=== PATIENT | female | born 1980 | race Caucasian/White ===

== ENCOUNTER 2019-09-15 11:09 | Emergency (ER) | payer BC, MEDICAID, SELFPAY ==
[2019-09-15 11:20] VITALS: BP 112/74; PULSE 73; RESP 19; TEMP 37.3; O2SAT 100
--- NOTE | 2019-09-15 11:27 | ED.GENADULT ---
HPI - General Adult General Chief complaint: Upper Respiratory Infection Stated complaint: sinus issues Time Seen by Provider: 09/15/19 11:28 Source: patient and RN notes reviewed Mode of arrival: ambulatory Limitations: no limitations History of Present Illness HPI narrative: This is a 38 years old female presented office for evaluation of possible sinus infection. Symptoms began last week with stuffy nose and head congestion and worse over the weekend with severe headache, facial pain, and left ear pain. She took [id number] Tylenol with no relief. She does not smoke. She takes immunomodulation for her Crohn's disease. Related Data Home Medications Medication Instructions Recorded Confirmed ustekinumab [Stelara] 90 mg SUBCUT DIRECTED 09/15/19 09/15/19 Allergies Allergy/AdvReac Type Severity Reaction Status Date / Time amoxicillin Allergy Mild Other Verified 09/15/19 11:24 Review of Systems Review of Systems: Narrative: CONSTITUTIONAL: Denies fever. Reports feeling malaise ENT:Reports head congestion, left ear pain with headache CARDIOVASCULAR: Denies chest pain, palpitation, edema. RESPIRATORY: Denies dyspnea, wheezing, cough GASTROINTESTINAL: Denies abdominal pain, nausea, vomiting. Reports chronic diarrhea due to Crohn's GENITOURINARY: Denies urinary symptoms or discharge SKIN: Denies rash MUSCULOSKELETAL: Denies acute back pain NEUROLOGIC: Denies lightheaded PMFSH Past Medical History Medical History History of Crohn's disease Surgical History Surgical History Hx of spinal surgery Social History Social History Smoking status: Never smoker Alcohol intake: current Substance use type: marijuana Gender identity (if verbalized by the patient): Female Comments At time of signature, I agree with nursing past medical, surgical, social and family history. There is no relevant family history pertinent to the presenting complaint. Exam Narrative: Exam Narrative: GENERAL: This is a well-nourished, well-developed patient, in no apparent distress. EYES: Sclera clear/white. Vision is grossly intact. EARS: External ears normal, auditory canals clear and without drainage, TMs appears dull without light reflex, bulging without erythema. Hearing grossly intact. NOSE: External nose normal with no obvious nasal discharge, nares without redness, no rhinorrhea. Tenderness to palpation THROAT: Mucous membranes moist, posterior pharynx clear. NECK: Neck supple, non-tender without lymphadenopathy, masses or thyromegaly. CARDIOVASCULAR: Regular rate and rhythm without murmurs, gallops, or rubs. RESPIRATORY: Clear to auscultation. Breath sounds equal bilaterally. No wheezes, rales, or rhonchi. GASTROINTESTINAL: Abdomen soft, non-tender, nondistended. Bowel sounds are active. No guarding. SKIN: warm, intact with no suspicious lesions or rash, good texture and turgor. NEURO: awake, alert, and oriented to person, place and time. There were no obvious focal neurologic abnormalities. Steady gait Belinda Coma Scale Eye Opening: Spontaneous 4 [place] Coma Scale Motor: Obeys Commands 6 Belinda Coma Scale Verbal: Oriented 5 Course Vital Signs Vital signs: Vital Signs Temperature 99.2 F 09/15/19 11:20 Pulse Rate 73 09/15/19 11:20 Respiratory Rate 19 09/15/19 11:20 Blood Pressure 112/74 09/15/19 11:20 Pulse Oximetry 100 09/15/19 11:20 Temperature 99.2 F 09/15/19 11:20 Pulse Rate 73 09/15/19 11:20 Respiratory Rate 19 09/15/19 11:20 Blood Pressure 112/74 09/15/19 11:20 Pulse Oximetry 100 09/15/19 11:20 Medical Decision Making MDM Narrative Medical decision making narrative: Discharge instructions reviewed with patient, as well as provided in writing per nursing staff. The instructions also include specif
== END 2019-09-15 11:41 | disposition home or self-care (01) ==
PROVIDERS: Emergency Provider Nurse Practitioner; PCP Family Medicine
DX: J00 Acute nasopharyngitis [common cold] (principal); J01.90 Acute sinusitis, unspecified
CPT/HCPCS: 99213; G0463

== ENCOUNTER 2020-02-02 10:12 | Emergency (ER) | payer BC, SELFPAY ==
[2020-02-02 10:25] VITALS: BP 111/76; PULSE 75; RESP 20; TEMP 36.6; O2SAT 100
--- NOTE | 2020-02-02 11:10 | ED.GENADULT ---
HPI - General Adult General Chief complaint: Urogenital-Female Stated complaint: POS UTI/KUNZ Time Seen by Provider: 02/02/20 11:03 Source: patient and RN notes reviewed Mode of arrival: ambulatory Limitations: no limitations History of Present Illness HPI narrative: 39-year-old female presents with urinary complaints for 1 day. Dysuria consist of burning, frequency, and urgency.? No treatment.? Denies fever or chills. No significant pelvic pain. No vaginal discharge.? No concerns for STDs. Exacerbating factors urinating.? Denies hematuria or vaginal bleeding. Denies being , LMP currently started on 01/29/20.? No flank pain. Denies nausea, vomiting, and abdominal pain.? Tolerating liquids well.? Remains active. The patient reports she have not been diagnosed with COVID-19. The patient reports she is not waiting for the results of a COVID-19 lab test. The patient reports she do not have fever, chills, weakness, or fatigue, myalgia. The patient reports she do not have a new or worsening cough or shortness of breath. Denies chest pain. The patient reports she do not have any rhinorrhea, congestion, or sore throat, and diarrhea. Denies recent traveling. Denies concerns for COVID-19 or exposures been home with limited outdoor exposure except for essential household needs, work, and return home. At this time, patient is not suspected of having COVID-19. Some parts of this dictation were generated by voice recognition software and may contain typographical and/or grammatical inaccuracies. Related Data Home Medications Medication Instructions Recorded Confirmed ustekinumab [Stelara] 90 mg SUBCUT DIRECTED 09/15/19 02/02/20 Allergies Allergy/AdvReac Type Severity Reaction Status Date / Time amoxicillin Allergy Mild Other Verified 09/15/19 11:24 Review of Systems Review of Systems: Narrative: CONSTITUTIONAL: Denies fever, chills, sweats. EYES: Denies visual changes, redness, discharge. ENT: Denies rhinorrhea, congestion, sore throat, otalgia. CARDIOVASCULAR: Denies chest pain, palpitations, edema. RESPIRATORY: Denies dyspnea, wheezing, cough. GASTROINTESTINAL: Denies abdominal pain, nausea, vomiting, diarrhea. GENITOURINARY: Complains of dysuria (burning, frequency, and urgency). Denies hematuria, abnormal discharge. SKIN: Denies rash or itching. MUSCULOSKELETAL: Denies acute back pain, joint pain, or myalgia. NEUROLOGIC: Denies numbness or focal weakness. PSYCHIATRIC: Denies anxiety or depression. All systems reviewed & are unremarkable except as noted in HPI and below. [facility] Past Medical History Medical History (Updated 02/02/20 @ 12:52 by CARLITO Haynes) History of Crohn's disease Surgical History Surgical History (Updated 02/02/20 @ 12:52 by CARLITO Haynes) History of exploratory laparotomy Hx of spinal surgery Family History Family History (Updated 02/02/20 @ 12:52 by CARLITO Haynes) Father Alive and well Mother Hypertension Social History Social History (Updated 02/02/20 @ 12:53 by CARLITO Haynes) Smoking packs per day: 0.5 Smoking cigarettes per day: 10.0 Years smoked: 20 Smoking pack-years: 10.00 Smoking status: Current every day smoker Second hand tobacco smoke exposure: No Alcohol intake: current Substance use: current Substance use type: marijuana Living arrangements: with family Occupation/Education: occupation Gender identity (if verbalized by the patient): Female Comments At time of signature, agree with nurse past medical, surgical, social, and family history.? There is no relevant family history pertinent to the presenting complaint. Exam Narrative: Exam Narrative: GENERAL: This is a well-nourished, well-developed patient, in no apparent distress.? Talks in full sentences and ambulates with steady gait without dyspnea. HEAD: normocephalic, atraumatic. EYES: PERRL. Sclera clear/white. Vision is grossly intact. [place]
== END 2020-02-02 11:19 | disposition home or self-care (01) ==
PROVIDERS: Emergency Provider Nurse Practitioner Family; PCP Family Medicine
DX: R30.0 Dysuria (principal); F17.210 Nicotine dependence, cigarettes, uncomplicated; K50.90 Crohn's disease, unspecified, without complications
CPT/HCPCS: 81003; 87077; 87086; 87088; 99213; G0463

== ENCOUNTER 2020-11-30 08:02 | Emergency (ER) | payer BC, SELFPAY ==
--- NOTE | ~2020-11-30 | XR_ITS ---
EXAMINATION: XR chest 2V EXAM DATE: 11/30/2020 08:56 INDICATION: Cough, Congestion x 1 wk, afebrile; hx of asthma as child. TECHNIQUE: Frontal and lateral projections of the chest obtained and reviewed. Comparison is made to prior examination from 06/04/2018.. FINDINGS: The lungs are clear. There are no pleural effusions. The cardiomediastinal silhouette is within normal limits. There is no pneumothorax suspected. The bones and soft tissues are unremarkab le. IMPRESSION: Normal chest x-ray exam. Reviewed, dictated and finalized at location A. IMPRESSION: Normal chest x-ray exam.
[2020-11-30 08:19] VITALS: BP 130/84; PULSE 68; RESP 16; TEMP 36.2; O2SAT 100
--- NOTE | 2020-11-30 08:36 | ED.GENADULT ---
HPI - General Adult General Chief complaint: Upper Respiratory Infection Stated complaint: upper respiratory infection Time Seen by Provider: 11/30/20 08:36 Source: patient and RN notes reviewed Mode of arrival: ambulatory Limitations: no limitations History of Present Illness HPI narrative: 39-year-old female presents with complains of dry cough for the past 7 days. Lacey reports increasing symptoms with congestion and facial pressure over the past 24 hours. Mucinex and DayQuil without relief. Constant dry cough with chest congestion. Rhinorrhea and nasal congestion. Denies sore throat. No high fevers, drooling, neck or throat swelling. No chest pain, wheezing, or shortness of breath. Exacerbation factors consist of smoke exposure. Denies nausea, vomiting, and abdominal pain. Tolerating liquids well. Remains active. The patient reports she have not been diagnosed with COVID-19. The patient reports she received 2 Moderna COVID-19 vaccines, last on October 05, 2020. The patient reports she is not waiting for the results of a COVID-19 lab test. The patient reports she do not have chills, weakness, or fatigue. The patient reports she do not have a new or worsening cough or shortness of breath. Denies chest pain. The patient reports she do not have any rhinorrhea, congestion, sore throat, loss of taste or smell, nausea, vomiting, abdominal pain, and diarrhea. Tolerating po intake well. Denies recent traveling. Denies concerns for COVID-19 or exposures been home with limited outdoor exposure except for essential household needs, work, and return home. At this time, patient is not suspected of having COVID-19. Some parts of this dictation were generated by voice recognition software and may contain typographical and/or grammatical inaccuracies. Related Data Home Medications Medication Instructions Recorded Confirmed ustekinumab [Stelara] 90 mg SUBCUT DIRECTED 09/15/19 02/02/20 Allergies Allergy/AdvReac Type Severity Reaction Status Date / Time amoxicillin Allergy Mild Other Verified 09/15/19 11:24 Review of Systems Review of Systems: Narrative: CONSTITUTIONAL: Denies fever, chills, sweats. EYES: Denies visual changes, redness, discharge. ENT: Complains of rhinorrhea, congestion, facial pressure. Denies sore throat, otalgia. CARDIOVASCULAR: Denies chest pain, palpitations, edema. RESPIRATORY: Denies dyspnea, wheezing. Complains of dry cough with chest congestion. GASTROINTESTINAL: Denies abdominal pain, nausea, vomiting, diarrhea. SKIN: Denies rash or itching. MUSCULOSKELETAL: Denies acute back pain, joint pain, or myalgia. NEUROLOGIC: Denies numbness or focal weakness. PSYCHIATRIC: Denies anxiety or depression. All systems reviewed & are unremarkable except as noted in HPI and below. [facility] Past Medical History Medical History (Updated 11/30/20 @ 09:30 by CARLITO Haynes) Arthritis Cyst History of Crohn's disease Vaginal delivery X2 Surgical History Surgical History (Updated 11/30/20 @ 09:30 by CARLITO Haynes) History of exploratory laparotomy History of removal of cyst History of tubal ligation History of tympanostomy Hx of spinal surgery Family History Family History (Updated 11/30/20 @ 09:01 by CARLITO Haynes) Father Diabetes mellitus Mother Hypertension Social History Social History (Updated 11/30/20 @ 09:02 by CARLITO Haynes) Smoking packs per day: 0.5 Smoking cigarettes per day: 10.0 Years smoked: 20 Smoking pack-years: 10.00 Smoking status: Current every day smoker Second hand tobacco smoke exposure: No Alcohol intake: current Substance use: current Substance use type: marijuana Living arrangements: with family Occupation/Education: unemployed Gender identity (if verbalized by the patient): Female Sexual Orientation (if Verbalized by the Patient): Straight or Heterosexual Comments At time of signature, agree
== END 2020-11-30 09:20 | disposition home or self-care (01) ==
PROVIDERS: Emergency Provider Nurse Practitioner Family
DX: B34.9 Viral infection, unspecified (principal); R06.2 Wheezing; F17.200 Nicotine dependence, unspecified, uncomplicated; M19.90 Unspecified osteoarthritis, unspecified site
CPT/HCPCS: 71046; 99213; G0463

== ENCOUNTER 2021-03-08 11:23 | Emergency (ER) | payer OTHER, SELFPAY ==
[2021-03-08 11:27] VITALS: BP 121/79; PULSE 66; RESP 12; TEMP 36.2; O2SAT 100
--- NOTE | 2021-03-08 11:47 | ED.URI ---
HPI - URI/Sore Throat General Chief Complaint: Upper Respiratory Infection Stated Complaint: SINUS CONGESTION Source: patient Mode of arrival: ambulatory Limitations: no limitations History of Present Illness HPI Narrative: Patient is a 40 year old female who presents reporting sinus pressure, headache, sore throat, cough and sinus drainage x 2 days. Patient reports vaccinated for Covid x 2. Patient reports no known exposure to Covid. She denies fever or chest pain. She reports a medical history which includes Crohn's which is followed by GI. She denies taking any [id number] medications prior to arrival. MD elicited complaint: cough, sore throat, nasal congestion and sinus pain Related Data Home Medications Medication Instructions Recorded Confirmed ustekinumab [Stelara] 90 mg SUBCUT DIRECTED 09/15/19 02/02/20 Allergies Allergy/AdvReac Type Severity Reaction Status Date / Time amoxicillin Allergy Mild Other Verified 09/15/19 11:24 Review of Systems Review of Systems: CONSTITUTIONAL: Denies fever, chills, or sweats. EYES: Denies visual changes, redness, or discharge. ENT: Denies rhinorrhea, reports congestion, sinus pressure and sore throat. CARDIOVASCULAR: Denies chest pain, palpitations, or edema. RESPIRATORY: Denies cough or dyspnea. GASTROINTESTINAL: Denies abdominal pain, nausea, vomiting, or diarrhea. GENITOURINARY: Denies dysuria or hematuria. SKIN: Denies rash or itching. MUSCULOSKELETAL: Denies back pain, joint pain, or myalgia. NEUROLOGIC: Reports headache, denies numbness, dizziness, or weakness. PSYCHIATRIC: Denies anxiety or depression. [facility] Past Medical History Medical History Arthritis Cyst History of Crohn's disease Vaginal delivery X2 Surgical History Surgical History History of exploratory laparotomy History of removal of cyst History of tubal ligation History of tympanostomy Hx of spinal surgery Family History Family History Father Diabetes mellitus Mother Hypertension Social History Social History Smoking packs per day: 0.5 Smoking cigarettes per day: 10.0 Years smoked: 20 Smoking pack-years: 10.00 Smoking status: Current every day smoker Second hand tobacco smoke exposure: No Alcohol intake: current Substance use: current Substance use type: marijuana Gender identity (if verbalized by the patient): Female Comments At the time of signature, I have reviewed and agree with nursing past medical, surgical, social, and family history unless otherwise noted. Please see nursing chart for further information. There is no relevant family history pertinent to the presenting complaint. Exam Narrative: GENERAL: Well-appearing, well-nourished, and in no acute distress. HEAD: Normocephalic, atraumatic. EYES: EOMI. No redness or drainage. Conjunctiva are normal. ENT: Mucous membranes pink and moist. Nares clear. No rhinorrhea. Throat mild erythema. Uvula midline. Maxillary sinus tenderness with palpation NECK: AROM. Supple. No lymphadenopathy. CHEST: No respiratory distress. HEART: Regular rate and rhythm. EXTREMITIES: Normal range of motion. No edema. SKIN: Warm, dry, no rash. NEURO: No focal deficits. Alert and oriented x3. Gait steady. PSYCH: Normal affect. No signs of depression or anxiety. Course Vital Signs Vital signs: Vital Signs Temperature 36.2 C L 03/08/21 11:27 Pulse Rate 66 03/08/21 11:27 Respiratory Rate 12 03/08/21 11:27 Blood Pressure 121/79 03/08/21 11:27 Pulse Oximetry 100 03/08/21 11:27 Temperature 36.2 C L 03/08/21 11:27 Pulse Rate 66 03/08/21 11:27 Respiratory Rate 12 03/08/21 11:27 Blood Pressure 121/79 03/08/21 11:27 Pulse Oximetry 100 03/08/21 11:27 Reviewed
== END 2021-03-08 11:58 | disposition home or self-care (01) ==
PROVIDERS: Emergency Provider Nurse Practitioner
DX: U07.1 COVID-19 (principal); M19.90 Unspecified osteoarthritis, unspecified site; K50.90 Crohn's disease, unspecified, without complications; F17.210 Nicotine dependence, cigarettes, uncomplicated
CPT/HCPCS: 87426; 99213; C9803; G0463

== ENCOUNTER 2021-03-10 12:53 | Outpatient (RCR) | payer OTHER, SELFPAY ==
[2021-03-10] MEDS: ACETAMINOPHEN 325 MG TABLET 650 MG PO (13:07)
[2021-03-10] MEDS: FAMOTIDINE 20 MG TABLET PO (13:08)
[2021-03-10] MEDS: diphenhydrAMINE HCl CAP 25 MG CAPSULE PO (13:08)
[2021-03-10 13:20] VITALS: BP 100/65; PULSE 64; RESP 16; TEMP 36.3; O2SAT 100
--- NOTE | 2021-03-10 13:31 | PC.NURSE ---
Patient states she received both doses of the Pfizer COVID vaccine. Her first vaccine was 09/14/2020 and second was 10/15/2020.
[2021-03-10 14:43] VITALS: BP 103/65; PULSE 69; RESP 16; TEMP 36.2; O2SAT 98
--- NOTE | 2021-03-11 10:34 | PC.NURSE ---
Called patient to follow-up on yesterday's antibody infusion. Patient states she is feeling much better and denies any side effects at this time.
== END 2021-03-10 16:00 | disposition home or self-care (01) ==
LOC: AMCINF 12:53
PROVIDERS: Visit Provider Internal Medicine Hematology & Oncology
DX: Z23 Encounter for immunization (principal); U07.1 COVID-19
CPT/HCPCS: A9270; J7050; M0243

== ENCOUNTER 2021-07-23 11:26 | Outpatient (CLI) | payer OTHER, SELFPAY ==
--- NOTE | ~2021-07-23 | MM_ITS ---
EXAMINATION: MM screening [facility] BI w [facility] HISTORY: Screening TECHNIQUE: Craniocaudal and mediolateral oblique 3-D tomosynthesis images were obtained and synthetic 2-D images were generated. CAD analysis was submitted and interpreted. COMPARISON: No prior mammogram is available for comparison at this institution. BREAST PARENCHYMAL COMPOSITION: There are scattered areas of fibroglandular density. FINDINGS: There is no evidence of suspicious mass, calcification, or architectural distortion to sugg est malignancy in either breast. There has been no suspicious interval change. IMPRESSION: 1. No mammographic evidence of malignancy. 2. Recommend routine screening mammography in one year. BI-RADS Category 1: Negative Reviewed, dictated and finalized at location A. INSPECTOR
== END 2021-07-23 11:27 | disposition home or self-care (01) ==
PROVIDERS: PCP Family Medicine; Visit Provider Nurse Practitioner Family
DX: Z12.31 Encounter for screening mammogram for malignant neoplasm of breast (principal)
CPT/HCPCS: 77063; 77067

== ENCOUNTER 2021-11-06 10:02 | Emergency (ER) | payer OTHER, SELFPAY ==
[2021-11-06 10:07] VITALS: BP 107/83; PULSE 73; RESP 16; TEMP 36.5; O2SAT 99
--- NOTE | 2021-11-06 10:21 | ED.GENADULT ---
HPI - General Adult General Chief complaint: Upper Respiratory Infection Stated complaint: CONGESTION Source: patient Mode of arrival: ambulatory Limitations: no limitations History of Present Illness HPI narrative: Patient presents for evaluation of sinus symptoms for the past week. She reports sinus congestion, thick mucopurulent discharge from bilateral nares, scratchy throat, hot flashes and chills. No objective fever, significant cough, shortness of breath, nausea, vomiting. She has diarrhea but states that this is chronic related to her Crohn's. Her son has similar symptoms. She has taken some OTC tylenol sinus medication without considerable improvement in her symptoms. She smokes marijuana regularly and also smokes cigarettes. No additional complaints or concerns. Related Data Home Medications Medication Instructions Recorded Confirmed ustekinumab [Stelara] 90 mg SUBCUT DIRECTED 09/15/19 11/06/21 multivitamin 1 tablet PO DAILY 07/14/21 11/06/21 Allergies Allergy/AdvReac Type Severity Reaction Status Date / Time No Known Allergies Allergy Verified 11/06/21 10:20 Review of Systems Review of Systems: CONSTITUTIONAL: Flashes and chills. Denies objective fever. EYES: Denies visual changes, redness, or discharge. ENT: Reports sinus congestion, thick mucopurulent discharge from bilateral naris, bilateral ear discomfort and scratchy throat CARDIOVASCULAR: Denies chest pain, palpitations, or edema. RESPIRATORY: Denies cough or dyspnea. GASTROINTESTINAL: Reports chronic diarrhea, unchanged. Denies abdominal pain, nausea, or vomiting GENITOURINARY: Denies dysuria or hematuria. SKIN: Denies rash or itching. MUSCULOSKELETAL: Denies back pain, joint pain, or myalgia. NEUROLOGIC: Denies headache, numbness, dizziness, or weakness. PSYCHIATRIC: Denies anxiety or depression. [facility]LY [facility] Past Medical History Medical History Anxiety Arthritis Asthma childhood Crohn disease Cyst History of Crohn's disease Nicotine use Psoriasis Psoriatic arthritis Vaginal delivery X2 Surgical History Surgical History History of exploratory laparotomy (~1997) History of removal of cyst History of tubal ligation (~2006) History of tympanostomy Hx of spinal surgery (~2013) Family History Family History Father Diabetes mellitus Mother Hypertension Social History Social History Social History: Pt lives with 2 sons Smoking packs per day: 0.25 Smoking cigarettes per day: 5.0 Years smoked: 20 Smoking pack-years: 5.00 Tobacco type: cigarettes Second hand tobacco smoke exposure: No Additional smoking assessment comments: medical marijuana usage daily Alcohol intake: current Substance use: current Substance use type: marijuana Gender identity (if verbalized by the patient): Female Sexual Orientation (if Verbalized by the Patient): Straight or Heterosexual Spiritual care concerns: No Agree to blood products: Yes Exam Narrative: GENERAL: Well-appearing, well-nourished, and in no acute distress. HEAD: Normocephalic, atraumatic. EYES: PERRLA and EOMI. ENT: Nares clear, no rhinorrhea or epistaxis. Mucous membranes moist. Oropharynx without tonsillar hypertrophy exudate or other lesions. Bilateral TM scarring. NECK: Supple. No adenopathy or masses. No carotid bruits or JVD CHEST: Clear to auscultation. No respiratory distress. No wheezes rales or rhonchi HEART: Regular rate and rhythm. No murmur heard. Normal peripheral pulses. ABDOMEN: Soft, nontender, nondistended, normal active bowel sounds. EXTREMITIES: Normal range of motion. No edema. SKIN: Warm, dry, no rash. NEURO: No focal deficits. Alert and oriented x3. PSYCH: Normal mood and affect. Cou
== END 2021-11-06 10:23 | disposition home or self-care (01) ==
PROVIDERS: Emergency Provider Nurse Practitioner; PCP Nurse Practitioner Family
DX: J01.90 Acute sinusitis, unspecified (principal); F17.210 Nicotine dependence, cigarettes, uncomplicated; F12.90 Cannabis use, unspecified, uncomplicated; M19.90 Unspecified osteoarthritis, unspecified site; K50.90 Crohn's disease, unspecified, without complications; L40.9 Psoriasis, unspecified; L40.50 Arthropathic psoriasis, unspecified
CPT/HCPCS: 99213; G0463

== ENCOUNTER 2022-02-28 09:24 | Emergency (ER) | payer OTHER, SELFPAY ==
[2022-02-28 09:32] VITALS: BP 117/79; PULSE 76; RESP 20; TEMP 35.9; O2SAT 99
--- NOTE | 2022-02-28 09:49 | ED.URI ---
HPI - URI/Sore Throat General Chief Complaint: Upper Respiratory Infection Stated Complaint: right ear clogged, congestion,sore throat Time Seen by Provider: 02/28/22 09:51 Source: RN notes reviewed and old records reviewed Mode of arrival: ambulatory Limitations: no limitations History of Present Illness HPI Narrative: 41-year-old female who presents to [facility] care with complaints of 5 day history of cough, sore throat, sinus congestion and drainage, headache pain and sinus pressure, right ear feels clogged. Patient denies any known fevers, has not had chills or sweats. Patient reports that she has taken a Covid test on Sunday which was negative. Patient reports that she has had COVID vaccinations and also flu shot. Patient has history of psoriatic arthritis and chrons and takes Stelara for treatment. Patient reports that she has taken Mucinex and Tylenol Cold medications for her symptoms without resolution. MD elicited complaint: cough, sore throat, rhinorrhea, nasal congestion, sinus pain and other (headache ) Pertinent past history: immunosuppression Onset (ago): day(s) (5) Pain scale (0-10): 4 Treatments prior to arrival: cold medicine and other (Mucinex) Related Data Home Medications Medication Instructions Recorded Confirmed ustekinumab 90 mg/mL subcutaneous 90 mg subcut DIRECTED 09/15/19 02/28/22 syringe (Stelara) Allergies Allergy/AdvReac Type Severity Reaction Status Date / Time No Known Allergies Allergy Verified 11/06/21 10:20 Review of Systems Review of Systems: CONSTITUTIONAL: Denies fever, chills, or sweats. EYES: Denies visual changes, redness, or discharge. ENT: Positive for rhinorrhea, congestion, sore throat, right otalgia. CARDIOVASCULAR: Denies chest pain, palpitations, or edema. RESPIRATORY: Positive for cough denies dyspnea. GASTROINTESTINAL: Denies abdominal pain, nausea, vomiting, or diarrhea. GENITOURINARY: Denies dysuria or hematuria. SKIN: Denies rash or itching. MUSCULOSKELETAL: Denies back pain, joint pain, or myalgia. NEUROLOGIC:Positive for headache,no numbness, or weakness. PSYCHIATRIC: Positive history of anxiety or depression. All systems reviewed & are unremarkable except as noted in HPI and below PMFSH Past Medical History Medical History Anxiety Arthritis Asthma childhood Crohn disease Cyst History of Crohn's disease Nicotine use Psoriasis Psoriatic arthritis Vaginal delivery X2 Surgical History Surgical History History of exploratory laparotomy (~1997) History of removal of cyst History of tubal ligation (~2006) History of tympanostomy Hx of spinal surgery (~2013) Family History Family History Father Diabetes mellitus Mother Hypertension Social History Social History (Updated 03/02/22 @ 08:56 by Jalyn Priest NP) Social History: Pt lives with 2 sons Smoking packs per day: 0.25 Smoking cigarettes per day: 5.0 Years smoked: 20 Smoking pack-years: 5.00 Tobacco type: cigarettes Second hand tobacco smoke exposure: No Additional smoking assessment comments: medical marijuana usage daily Alcohol intake: current Substance use: current Substance use type: marijuana Other substance usage details: past use of heroin with patient clean for 9 years Living arrangements: with family Gender identity (if verbalized by the patient): Female Sexual Orientation (if Verbalized by the Patient): Straight or Heterosexual Spiritual care concerns: No Agree to blood products: Yes Comments At time of signature, agree with nursing past medical, surgical, social and family history. There is no relevant family history pertinent to the presenting complaint Exam Narrative: GENERAL: Ill-appearing, well-nourished, and in no acute distress. HEAD: Normocephalic, atraumatic.
--- NOTE | 2022-02-28 10:05 | ED.URI ---
HPI - URI/Sore Throat General Chief Complaint: Upper Respiratory Infection Stated Complaint: right ear clogged, congestion,sore throat Time Seen by Provider: 02/28/22 09:51 Source: RN notes reviewed and old records reviewed Mode of arrival: ambulatory Limitations: no limitations History of Present Illness Pertinent past history: immunosuppression Onset (ago): day(s) (5) Related Data Home Medications Medication Instructions Recorded Confirmed ustekinumab 90 mg/mL subcutaneous 90 mg subcut DIRECTED 09/15/19 02/28/22 syringe (Stelara) Allergies Allergy/AdvReac Type Severity Reaction Status Date / Time No Known Allergies Allergy Verified 11/06/21 10:20 PMFSH Past Medical History Medical History Anxiety Arthritis Asthma childhood Crohn disease Cyst History of Crohn's disease Nicotine use Psoriasis Psoriatic arthritis Vaginal delivery X2 Surgical History Surgical History History of exploratory laparotomy (~1997) History of removal of cyst History of tubal ligation (~2006) History of tympanostomy Hx of spinal surgery (~2013) Family History Family History Father Diabetes mellitus Mother Hypertension Social History Social History Social History: Pt lives with 2 sons Smoking packs per day: 0.25 Smoking cigarettes per day: 5.0 Years smoked: 20 Smoking pack-years: 5.00 Tobacco type: cigarettes Second hand tobacco smoke exposure: No Additional smoking assessment comments: medical marijuana usage daily Alcohol intake: current Substance use: current Substance use type: marijuana Gender identity (if verbalized by the patient): Female Sexual Orientation (if Verbalized by the Patient): Straight or Heterosexual Spiritual care concerns: No Agree to blood products: Yes Course Vital Signs Vital signs: Vital Signs Temperature 35.9 C L 02/28/22 09:32 Pulse Rate 76 02/28/22 09:32 Respiratory Rate 20 02/28/22 09:32 Blood Pressure 117/79 02/28/22 09:32 Pulse Oximetry 99 02/28/22 09:32 Temperature 35.9 C L 02/28/22 09:32 Pulse Rate 76 02/28/22 09:32 Respiratory Rate 20 02/28/22 09:32 Blood Pressure 117/79 02/28/22 09:32 Pulse Oximetry 99 02/28/22 09:32 MDM - URI/Sore Throat Lab Data Labs: Lab Results 02/28/22 Range/Units 09:48 POC SARS CoV-2 Ag Negative (Negative) Discharge Plan Discharge Clinical Impression: Bacterial sinusitis Patient Disposition: Home, Self-Care Condition: Stable Instructions: Antibiotic Form, Rhinosinusitis (ED) Additional Instructions: Increase fluids especially juices and water [id number] cough and cold medicine of your choice for your symptoms Zyrtec Claritin or Opal daily may include plain Sudafed 1 to 2 tablets twice daily take second dose before 4 PM Tylenol ibuprofen for any fever pain heat to the face 20-30 minutes 4-6 times a day for pain Salt water gargles, throat lozenges or throat sprays as desired Antibiotic as directed--finished the medication If your symptoms persist, change or worsen significantly before you can contact your personal physician then please, without delay, go to the emergency department for further evaluation. Follow-up with PCP in 7-10 days or sooner if needed Prescriptions: New amoxicillin 875 mg tablet 875 mg PO Q12H 7 Days Qty: 14 0RF No Action Stelara 90 mg/mL syringe 90 mg SUBCUT DIRECTED Follow-up/Referrals: Michelle Thrasher NP [Primary Care Provider] - Time of Disposition: 10:09
== END 2022-02-28 10:30 | disposition home or self-care (01) ==
PROVIDERS: Emergency Provider Registered Nurse; PCP Nurse Practitioner Family
DX: J32.9 Chronic sinusitis, unspecified (principal); Z20.822 Contact with and (suspected) exposure to COVID-19; F17.210 Nicotine dependence, cigarettes, uncomplicated; M19.90 Unspecified osteoarthritis, unspecified site; K50.90 Crohn's disease, unspecified, without complications; L40.9 Psoriasis, unspecified; L40.50 Arthropathic psoriasis, unspecified
CPT/HCPCS: 87426; 99213; C9803; G0463

== ENCOUNTER 2022-03-10 09:18 | Emergency (ER) | payer OTHER, SELFPAY ==
--- NOTE | 2022-03-10 09:24 | ED.SKABFB ---
HPI - Skin/Abscess/Foreign Bdy General Chief complaint: Skin/Abscess/Foreign Body Stated complaint: body rash Time Seen by Provider: 03/10/22 09:27 Source: patient Mode of arrival: ambulatory Limitations: no limitations History of Present Illness HPI narrative: 41 y/o female presented for c/o spreading rash for 2 days. Rash started on left inner knee, and has spread to left arm and one spot to the right eye. Endorses itching, denies pain or drainage. Has used triamcinolone she has for psoriasis. Denies change to lotion soap detergent etc, no new meds or known exposures. Related Data Home Medications Medication Instructions Recorded Confirmed ustekinumab 90 mg/mL subcutaneous 90 mg subcut DIRECTED 09/15/19 03/10/22 syringe (Stelara) Allergies Allergy/AdvReac Type Severity Reaction Status Date / Time No Known Allergies Allergy Verified 11/06/21 10:20 Review of Systems Review of Systems: CONSTITUTIONAL: Denies body aches, fever, chills, or sweats. EYES: Denies visual changes, redness, or discharge. ENT: Denies rhinorrhea, congestion CARDIOVASCULAR: Denies chest pain, palpitations, or edema. RESPIRATORY: Denies cough or dyspnea. SKIN: rash to leg and arm MUSCULOSKELETAL: Denies back pain, joint pain, or myalgia. NEUROLOGIC: Denies headache PMFSH Past Medical History Medical History Anxiety Arthritis Asthma childhood Crohn disease Cyst History of Crohn's disease Nicotine use Psoriasis Psoriatic arthritis Vaginal delivery X2 Surgical History Surgical History History of exploratory laparotomy (~1997) History of removal of cyst History of tubal ligation (~2006) History of tympanostomy Hx of spinal surgery (~2013) Family History Family History Father Diabetes mellitus Mother Hypertension Social History Social History Social History: Pt lives with 2 sons Smoking packs per day: 0.25 Smoking cigarettes per day: 5.0 Years smoked: 20 Smoking pack-years: 5.00 Tobacco type: cigarettes Second hand tobacco smoke exposure: No Additional smoking assessment comments: medical marijuana usage daily Alcohol intake: current Substance use: current Substance use type: marijuana Other substance usage details: past use of heroin with patient clean for 9 years Gender identity (if verbalized by the patient): Female Sexual Orientation (if Verbalized by the Patient): Straight or Heterosexual Spiritual care concerns: No Agree to blood products: Yes Comments At time of signature, I have reviewed and agree with nursing past medical, surgical, social and family history unless otherwise noted. Please see nursing chart for further information. There is no relevant family history pertinent to the presenting complaint Exam Narrative: GENERAL: Well-appearing EYES: conjunctivae clear, and EOMI. ENT: Mucous membranes moist. Oropharynx without edema, erythema or lesions. CHEST: Clear to auscultation. HEART: Regular rate and rhythm. SKIN: Warm, dry; few scattered vesicular lesions to left medial knee and left forearm, one lesion to right lateral eye c/w contact dermatitis; signs of scratching/scabbing noted; no active drainage, no s/s infection. NEURO: Alert and oriented x3. Course Course Emergency Course: Patient is aware of diagnosis, understands and agrees to treatment plan. Anticipatory guidance given. Patient agrees to follow-up as directed and is aware of reasons to seek care at the emergency department. Portions of this record may have been created with voice recognition software Level of Care: Express Care Visit Vital Signs Vital signs: Reviewed MDM - Skin/Abscess/Foreign Bdy MDM Narrative Medical decision making narrative: Advised
[2022-03-10 09:26] VITALS: BP 110/82; PULSE 62; RESP 16; TEMP 36.6; O2SAT 98
== END 2022-03-10 09:44 | disposition home or self-care (01) ==
PROVIDERS: Emergency Provider Nurse Practitioner Family; PCP Nurse Practitioner Family
DX: L25.9 Unspecified contact dermatitis, unspecified cause (principal); F17.210 Nicotine dependence, cigarettes, uncomplicated; K50.90 Crohn's disease, unspecified, without complications; L40.9 Psoriasis, unspecified; L40.50 Arthropathic psoriasis, unspecified
CPT/HCPCS: 99213; G0463

== ENCOUNTER 2022-03-20 16:19 | Emergency (ER) | payer OTHER, SELFPAY ==
[2022-03-20 16:31] VITALS: BP 104/78; PULSE 72; RESP 16; TEMP 36.7; O2SAT 99
--- NOTE | 2022-03-20 16:49 | ED.SKABFB ---
HPI - Skin/Abscess/Foreign Bdy General Chief complaint: Skin/Abscess/Foreign Body Stated complaint: body rash Source: patient Mode of arrival: ambulatory Limitations: no limitations History of Present Illness HPI narrative: 41-year-old female presents to [facility] with complaints of worsening erythematous itchy rash to her bilateral legs and now spreading to her arms for the past 10 days. Patient was evaluated here on 03/10, diagnosed with contact dermatitis and was prescribed a Medrol Dosepak at that time. Patient reports that her symptoms have not improved and have become worse over the past few days. Patient denies new medications, new soaps or new detergents. Patient denies shortness of breath, wheezing, trouble swallowing or difficulty breathing. MD complaint: rash Onset (ago): day(s) () Location: LLE and RLE Quality: pruritic Relieving factors: none Associated symptoms: denies other symptoms Related Data Home Medications Medication Instructions Recorded Confirmed ustekinumab 90 mg/mL subcutaneous 90 mg subcut DIRECTED 09/15/19 03/20/22 syringe (Stelara) Allergies Allergy/AdvReac Type Severity Reaction Status Date / Time No Known Allergies Allergy Verified 03/20/22 16:34 Review of Systems Constitutional: Constitutional: Denies chills, Denies fatigue, Denies fever(s) and Denies weakness ENT: Denies vertigo Gastrointestinal: Gastrointestinal: Denies diarrhea, Denies nausea and Denies vomiting Integumentary/Breasts: Skin/Breast: Reports pruritus, Reports rash and Denies skin ulcer Neurologic: Denies vertigo, Denies dizziness, Denies syncope and Denies headache(s) Allergic/Immunologic: Allergic/Immunologic: Denies throat swelling, Denies tongue swelling and Denies wheezing PMFSH Past Medical History Medical History Anxiety Arthritis Asthma childhood Crohn disease Cyst History of Crohn's disease Nicotine use Psoriasis Psoriatic arthritis Vaginal delivery X2 Surgical History Surgical History History of exploratory laparotomy (~1997) History of removal of cyst History of tubal ligation (~2006) History of tympanostomy Hx of spinal surgery (~2013) Family History Family History Father Diabetes mellitus Mother Hypertension Social History Social History Social History: Pt lives with 2 sons Smoking packs per day: 0.25 Smoking cigarettes per day: 5.0 Years smoked: 20 Smoking pack-years: 5.00 Tobacco type: cigarettes Second hand tobacco smoke exposure: No Additional smoking assessment comments: medical marijuana usage daily Alcohol intake: current Substance use: current Substance use type: marijuana Other substance usage details: past use of heroin with patient clean for 9 years Gender identity (if verbalized by the patient): Female Sexual Orientation (if Verbalized by the Patient): Straight or Heterosexual Spiritual care concerns: No Agree to blood products: Yes Comments At time of signature, I agree with nursing past medical, surgical, social and family history. There is no relevant family history pertinent to the presenting complaint. Exam Const: General: healthy appearing and no acute distress Nutritional Appearance: well nourished Orientation/consciousness: patient oriented x3 Limitations: no limitations HENMT: Head: normal to inspection Neck: Neck: normal visual inspection Resp: Effort & Inspection: normal respiratory effort and not labored Auscultation: clear to auscultation bilaterally and no crackles Cardio: Rate: regular rate Rhythm: regular rhythm Heart sounds: no murmurs Skin: General skin exam: normal color Wounds: no wounds Other: Raised erythematous rash noted to bilateral inner legs --rash is patchy;
[2022-03-20] MEDS: methylPREDNISolone SOD SUCC 125 MG VIAL IM (16:56)
== END 2022-03-20 17:20 | disposition home or self-care (01) ==
PROVIDERS: Emergency Provider Nurse Practitioner Family; PCP Nurse Practitioner Family
DX: L25.9 Unspecified contact dermatitis, unspecified cause (principal); F17.210 Nicotine dependence, cigarettes, uncomplicated; F12.90 Cannabis use, unspecified, uncomplicated; K50.90 Crohn's disease, unspecified, without complications; L40.50 Arthropathic psoriasis, unspecified
CPT/HCPCS: 96372; 99213; G0463; J2930

== ENCOUNTER 2022-05-29 16:58 | Emergency (ER) | payer OTHER, SELFPAY ==
[2022-05-29 17:05] VITALS: BP 115/87; PULSE 86; RESP 16; TEMP 36.9; O2SAT 99
--- NOTE | 2022-05-29 17:19 | ED.URI ---
HPI - URI/Sore Throat General Chief Complaint: Upper Respiratory Infection Stated Complaint: trouble swallowing, runny nose, body aches Time Seen by Provider: 05/29/22 17:19 History of Present Illness HPI Narrative: 41 y/o female with pmhx significant for Crohns, on immunosuppressive therapy, presents for c/o body aches and sore throat that started yesterday. Endorses associated sinus congestion, rhinorrhea, mild non-productive cough, nausea, and diarrhea. Has not attempted any home treatments. Denies SOB, CP, palpitations, or vomiting. Patient's youngest son was diagnosed with bronchitis 4 days ago. Related Data Home Medications Medication Instructions Recorded Confirmed ustekinumab 90 mg/mL subcutaneous 90 mg subcut DIRECTED 09/15/19 03/20/22 syringe (Stelara) Allergies Allergy/AdvReac Type Severity Reaction Status Date / Time No Known Allergies Allergy Verified 03/20/22 16:34 Review of Systems Review of Systems: CONSTITUTIONAL: Endorses body aches. Denies fever, chills, or sweats. EYES: Denies visual changes, redness, or discharge. ENT: Reports sore throat, rhinorrhea, congestion, and mild left otalgia. CARDIOVASCULAR: Denies chest pain, palpitations, or edema. RESPIRATORY: Denies dyspnea, or wheezing. Reports mild non-productive cough. GASTROINTESTINAL: Denies abdominal pain, or vomiting. Endorses nausea and diarrhea, but unsure if this is r/t her Crohn disease. [facility] Past Medical History Medical History Anxiety Arthritis Asthma childhood Crohn disease Cyst History of Crohn's disease Nicotine use Psoriasis Psoriatic arthritis Vaginal delivery X2 Surgical History Surgical History History of exploratory laparotomy (~1997) History of removal of cyst History of tubal ligation (~2006) History of tympanostomy Hx of spinal surgery (~2013) Family History Family History Father Diabetes mellitus Mother Hypertension Social History Social History Social History: Pt lives with 2 sons Smoking packs per day: 0.25 Smoking cigarettes per day: 5.0 Years smoked: 20 Smoking pack-years: 5.00 Tobacco type: cigarettes Second hand tobacco smoke exposure: No Additional smoking assessment comments: medical marijuana usage daily Alcohol intake: current Substance use: current Substance use type: marijuana Other substance usage details: past use of heroin with patient clean for 9 years Gender identity (if verbalized by the patient): Female Sexual Orientation (if Verbalized by the Patient): Straight or Heterosexual Spiritual care concerns: No Agree to blood products: Yes Exam Narrative: GENERAL: Ill-appearing, no acute distress. EYES: conjunctivae pink without drainage. ENT: Mucous membranes moist. TM pearly mendez with normal light reflex bilaterally; mild left tragal tenderness. Oropharynx erythematous without lesions. Tonsils enlarged 2+ and without exudate. No drooling, no hoarseness, no trismus, uvula midline. No tripod positioning, hot potato voice, or soft palate swelling. NECK: Supple. No lymphadenopathy CHEST: Clear to auscultation, breath sounds equal. No respiratory distress, speaks in full sentences. HEART: Regular rate and rhythm. No murmur heard. SKIN: Warm, dry, no rash. NEURO: Alert and oriented x3. Course Course Emergency Course: Patient is aware of diagnosis, understands and agrees to treatment plan. Anticipatory guidance given. Patient agrees to follow-up as directed and is aware of reasons to seek care at the emergency department. Portions of this record may have been created with voice recognition software Level of Care: Express Care Visit Vital Signs Vital signs: Vital Signs Temperature 98.4 F 05/29/22 17
== END 2022-05-29 17:29 | disposition home or self-care (01) ==
PROVIDERS: Emergency Provider Nurse Practitioner Family; PCP Nurse Practitioner Family
DX: J02.0 Streptococcal pharyngitis (principal); F17.219 Nicotine dependence, cigarettes, with unspecified nicotine-induced disorders; M19.90 Unspecified osteoarthritis, unspecified site; K50.90 Crohn's disease, unspecified, without complications; L40.9 Psoriasis, unspecified; L40.50 Arthropathic psoriasis, unspecified
CPT/HCPCS: 87880; 99213; G0463

== ENCOUNTER 2022-06-13 09:28 | Emergency (ER) | payer OTHER, SELFPAY ==
[2022-06-13 09:36] VITALS: BP 122/81; PULSE 85; RESP 20; TEMP 36.3; O2SAT 98
--- NOTE | 2022-06-13 09:40 | ED.URI ---
HPI - URI/Sore Throat General Chief Complaint: Upper Respiratory Infection Stated Complaint: BODY ACHES/COUGH/HEADACHE/CHILLS Time Seen by Provider: 06/13/22 10:00 Source: patient, RN notes reviewed and old records reviewed Mode of arrival: ambulatory Limitations: no limitations History of Present Illness HPI Narrative: 41-year-old female presents to the [facility] with complaints of body aches, cough, headache and chills since midday yesterday. Patient states that she felt fine yesterday morning and jail through the day felt like a bypass had her. Exposed to influenza on gi by her dad. States he tested positive for influenza a yesterday. MD elicited complaint: cough Onset (ago): hour(s) (18) Consistency: constant Severity: mild Related Data Home Medications Medication Instructions Recorded Confirmed ustekinumab 90 mg/mL subcutaneous 90 mg subcut DIRECTED 09/15/19 03/20/22 syringe (Stelara) Allergies Allergy/AdvReac Type Severity Reaction Status Date / Time No Known Allergies Allergy Verified 06/13/22 09:58 Review of Systems Review of Systems: All systems reviewed & are unremarkable except as noted in HPI and below Constitutional: Constitutional: Reports as per HPI, Reports body ache(s), Reports chills, Reports fatigue and Reports fever(s) Eyes: Eyes: Reports no additional eye complaints ENT: Reports system reviewed and no additional complaints, except as documented Cardiovascular: Cardiovascular: Reports no additional cardiovascular complaints, Denies chest pain and Denies dyspnea Respiratory: Respiratory: Reports as per HPI, Denies chest congestion, Reports cough and Denies dyspnea Gastrointestinal: Gastrointestinal: Reports no additional gastrointestinal complaints Musculoskeletal: Musculoskeletal: Reports no additional musculoskeletal complaints Integumentary/Breasts: Skin/Breast: Reports system reviewed and no additional complaints, except as docu Neurologic: Reports system reviewed and no additional complaints, except as documented Psychiatric: Psychiatric: Reports no additional psychiatric complaints Allergic/Immunologic: Allergic/Immunologic: Reports no additional allergic/immunologic complaints [facility] Past Medical History Medical History Anxiety Arthritis Asthma childhood Crohn disease Cyst History of Crohn's disease Nicotine use Psoriasis Psoriatic arthritis Vaginal delivery X2 Surgical History Surgical History History of exploratory laparotomy (~1997) History of removal of cyst History of tubal ligation (~2006) History of tympanostomy Hx of spinal surgery (~2013) Family History Family History Father Diabetes mellitus Mother Hypertension Social History Social History Social History: Pt lives with 2 sons Smoking packs per day: 0.25 Smoking cigarettes per day: 5.0 Years smoked: 20 Smoking pack-years: 5.00 Tobacco type: cigarettes Second hand tobacco smoke exposure: No Additional smoking assessment comments: medical marijuana usage daily Alcohol intake: current Substance use: current Substance use type: marijuana Other substance usage details: past use of heroin with patient clean for 9 years Gender identity (if verbalized by the patient): Female Sexual Orientation (if Verbalized by the Patient): Straight or Heterosexual Spiritual care concerns: No Agree to blood products: Yes Comments At the time of my signature, I reviewed and agree with the nursing past medical, surgical, social, and family history. There is no relevant family history pertinent to the patient complaint. Exam Const: General: cooperative, comfortable, no acute distress, well developed, alert, ill appearing acutely (mild) and average b
== END 2022-06-13 10:11 | disposition home or self-care (01) ==
PROVIDERS: Emergency Provider Nurse Practitioner; PCP Nurse Practitioner Family
DX: J11.1 Influenza due to unidentified influenza virus with other respiratory manifestations (principal); K50.90 Crohn's disease, unspecified, without complications; L40.9 Psoriasis, unspecified; L40.50 Arthropathic psoriasis, unspecified; F17.210 Nicotine dependence, cigarettes, uncomplicated; F12.90 Cannabis use, unspecified, uncomplicated
CPT/HCPCS: 99211; G0463

== ENCOUNTER 2022-10-05 18:26 | Emergency (ER) | payer OTHER, SELFPAY ==
--- NOTE | 2022-10-05 18:30 | ED.URI ---
HPI - URI/Sore Throat General Chief Complaint: Upper Respiratory Infection Stated Complaint: congestion,wheezing,cough Time Seen by Provider: 10/05/22 18:30 Source: patient and RN notes reviewed History of Present Illness HPI Narrative: Patient is a 41-year-old female presents to urgent care with complaints of congestion, wheezing, cough and postnasal drainage for the last week. Patient has been taking Sudafed and DayQuil without much relief. Denies any fever, nausea, vomiting. Denies any ill exposures. No other acute complaints. No acute distress noted. Patient aware of the plan of care. Some parts of this dictation were generated by voice recognition software and may contain typographical and/or grammatical inaccuracies. Related Data Home Medications Medication Instructions Recorded Confirmed ustekinumab 90 mg/mL subcutaneous 90 mg subcut DIRECTED 09/15/19 06/13/22 syringe (Stelara) Allergies Allergy/AdvReac Type Severity Reaction Status Date / Time No Known Allergies Allergy Verified 06/13/22 09:58 Review of Systems Review of Systems: CONSTITUTIONAL: Denies fever, chills, or sweats. Reports of fatigue EYES: Denies visual changes, redness, or discharge. ENT: Reports of nasal congestion, postnasal drainage, sore throat, bilateral otalgia CARDIOVASCULAR: Denies chest pain, palpitations, or edema. RESPIRATORY: Reports of cough without dyspnea GASTROINTESTINAL: Denies abdominal pain, nausea, vomiting, or diarrhea. GENITOURINARY: Denies dysuria or hematuria. SKIN: Denies rash or itching. MUSCULOSKELETAL: Denies back pain, joint pain, or myalgia. NEUROLOGIC: Denies headache, numbness, or weakness. All other systems reviewed are negative, except as documented in HPI. [facility] Past Medical History Medical History Anxiety Arthritis Asthma childhood Crohn disease Cyst History of Crohn's disease Nicotine use Psoriasis Psoriatic arthritis Vaginal delivery X2 Surgical History Surgical History History of exploratory laparotomy (~1997) History of removal of cyst History of tubal ligation (~2006) History of tympanostomy Hx of spinal surgery (~2013) Family History Family History Father Diabetes mellitus Mother Hypertension Social History Social History Social History: Pt lives with 2 sons Smoking packs per day: 0.25 Smoking cigarettes per day: 5.0 Years smoked: 20 Smoking pack-years: 5.00 Tobacco type: cigarettes Second hand tobacco smoke exposure: No Additional smoking assessment comments: medical marijuana usage daily Alcohol intake: current Substance use: current Substance use type: marijuana Other substance usage details: past use of heroin with patient clean for 9 years Living arrangements: with family Occupation/Education: unemployed Gender identity (if verbalized by the patient): Female Sexual Orientation (if Verbalized by the Patient): Straight or Heterosexual Spiritual care concerns: No Agree to blood products: Yes Comments At the time of my signature, I reviewed and agree with the nursing past medical, surgical, social, and family history. There is no relevant family history pertinent to the patient complaint. Exam Narrative: GENERAL: This is a well-nourished, well-developed patient, in no apparent distress. HEAD: normocephalic, atraumatic. EYES: PERRL. Sclera clear/white. Vision is grossly intact. EARS: External ears normal, auditory canals clear and without drainage, TMs normal without perforation. Hearing grossly intact. NOSE: External nose normal with no obvious nasal discharge, moderate bilateral erythema nares with clear yellow rhinorrhea THROAT: Mucous membranes moist, posterior pharynx clear. Moderate postnasal drainage NEC
[2022-10-05 18:42] VITALS: BP 113/80; PULSE 84; RESP 16; TEMP 36.6; O2SAT 99
== END 2022-10-05 19:05 | disposition home or self-care (01) ==
PROVIDERS: Emergency Provider Nurse Practitioner Family; PCP Nurse Practitioner Family
DX: J32.9 Chronic sinusitis, unspecified (principal); K50.90 Crohn's disease, unspecified, without complications; F17.200 Nicotine dependence, unspecified, uncomplicated
CPT/HCPCS: 99213; G0463

== ENCOUNTER 2023-04-05 10:39 | Emergency (ER) | payer OTHER, SELFPAY ==
[2023-04-05 11:00] VITALS: BP 113/86; PULSE 75; RESP 16; TEMP 36.3; O2SAT 98
--- NOTE | 2023-04-05 11:14 | ED.URI ---
HPI - URI/Sore Throat General Chief Complaint: Upper Respiratory Infection Stated Complaint: Sore Throat;Headache Time Seen by Provider: 04/05/23 11:14 Source: patient, RN notes reviewed and old records reviewed Mode of arrival: ambulatory Limitations: no limitations History of Present Illness HPI Narrative: 42-year-old presents to [facility] complaints of a sore throat and runny nose for 2 days. Patient also reports an intermittent cough. Denies chest pain or shortness of breath. Patient is a smoker Denies fevers Onset (ago): day(s) (2) Related Data Home Medications Medication Instructions Recorded Confirmed ustekinumab 90 mg/mL subcutaneous 90 mg subcut DIRECTED 09/15/19 04/05/23 syringe (Stelara) Allergies Allergy/AdvReac Type Severity Reaction Status Date / Time No Known Allergies Allergy Verified 04/05/23 10:59 Review of Systems Review of Systems: All systems reviewed & are unremarkable except as noted in HPI and below Constitutional: Constitutional: Reports no additional constitutional complaints Eyes: Eyes: Reports no additional eye complaints ENT: Reports as per HPI and Reports sore throat Cardiovascular: Cardiovascular: Reports no additional cardiovascular complaints, Denies chest pain and Denies dyspnea Respiratory: Respiratory: Reports no additional respiratory complaints, Denies chest congestion, Denies cough and Denies dyspnea Gastrointestinal: Gastrointestinal: Reports no additional gastrointestinal complaints, Denies abdominal pain, Denies nausea and Denies vomiting Musculoskeletal: Musculoskeletal: Reports no additional musculoskeletal complaints Integumentary/Breasts: Skin/Breast: Reports system reviewed and no additional complaints, except as docu Neurologic: Reports system reviewed and no additional complaints, except as documented Psychiatric: Psychiatric: Reports no additional psychiatric complaints Allergic/Immunologic: Allergic/Immunologic: Reports no additional allergic/immunologic complaints [facility] Past Medical History Medical History Anxiety Arthritis Asthma childhood Crohn disease Cyst History of Crohn's disease Nicotine use Psoriasis Psoriatic arthritis Vaginal delivery X2 Surgical History Surgical History History of exploratory laparotomy (~1997) History of removal of cyst History of tubal ligation (~2006) History of tympanostomy Hx of spinal surgery (~2013) Family History Family History Father Diabetes mellitus Mother Hypertension Social History Social History Social History: Pt lives with 2 sons Smoking packs per day: 0.25 Smoking cigarettes per day: 5.0 Years smoked: 20 Smoking pack-years: 5.00 Tobacco type: cigarettes Second hand tobacco smoke exposure: No Additional smoking assessment comments: medical marijuana usage daily Alcohol intake: current Substance use: current Substance use type: marijuana Other substance usage details: past use of heroin with patient clean for 9 years Living arrangements: with family Occupation/Education: unemployed Gender identity (if verbalized by the patient): Female Sexual Orientation (if Verbalized by the Patient): Straight or Heterosexual Spiritual care concerns: No Agree to blood products: Yes Comments At the time of my signature, I reviewed and agree with the nursing past medical, surgical, social, and family history. There is no relevant family history pertinent to the patient complaint. Exam Const: General: cooperative, healthy appearing, comfortable, no acute distress, well developed, alert and well nourished Nutritional Appearance: well nourished Orientation/consciousness: patient oriented x3 Limitations: no limitations HENMT: Head: normal
== END 2023-04-05 11:29 | disposition home or self-care (01) ==
PROVIDERS: Emergency Provider Nurse Practitioner
DX: J06.9 Acute upper respiratory infection, unspecified (principal); J40 Bronchitis, not specified as acute or chronic; F17.210 Nicotine dependence, cigarettes, uncomplicated
CPT/HCPCS: 87081; 87880; 99213; G0463

== ENCOUNTER 2024-03-31 11:00 | Emergency (ER) | payer OTHER, SELFPAY ==
--- NOTE | ~2024-03-31 | XR_ITS ---
XR chest 2V Ordering provider: Sasha Alfred APRN History: 43 years Female with . cough /congestion, HX smoking . Comparison: November 30, 2020. FINDINGS: MEDIASTINUM: The cardiac silhouette is not enlarged. LUNGS: No infiltrates, effusions or pneumothorax. OTHER: No free air under the diaphragm. IMPRESSION: No acute cardiopulmonary pathology Reviewed, dictated and finalized at location A.
--- NOTE | 2024-03-31 11:05 | ED.URI ---
HPI - URI/Sore Throat General Chief Complaint: Upper Respiratory Infection Stated Complaint: Cough Time Seen by Provider: 03/31/24 11:15 Source: patient, RN notes reviewed and old records reviewed Mode of arrival: ambulatory Limitations: no limitations History of Present Illness HPI Narrative: 43-year-old female presents to the [facility] with complaints of a cough this started Sunday sinus, 3 days ago. Started with some wheezing this morning. Patient states that she quit smoking cigarettes 2 months ago. Does smoke marijuana Patient also concern for gonorrhea. States that she received a call from a person that she has not been intimate with in 2-3 months. Patient denies any vaginal discharge, vaginal discomfort. Patient declining treatment at this time, will come back if she is positive Related Data Home Medications Medication Instructions Recorded Confirmed ustekinumab 90 mg/mL subcutaneous 90 mg subcut DIRECTED 09/15/19 03/31/24 syringe (Stelara) Allergies Allergy/AdvReac Type Severity Reaction Status Date / Time No Known Allergies Allergy Verified 03/31/24 11:09 Review of Systems Review of Systems: All systems reviewed & are unremarkable except as noted in HPI and below Constitutional: Constitutional: Reports no additional constitutional complaints Eyes: Eyes: Reports no additional eye complaints ENT: Reports system reviewed and no additional complaints, except as documented Cardiovascular: Cardiovascular: Reports no additional cardiovascular complaints, Denies chest pain and Denies dyspnea Respiratory: Respiratory: Reports as per HPI, Reports chest congestion, Reports cough and Denies dyspnea Gastrointestinal: Gastrointestinal: Reports no additional gastrointestinal complaints, Denies abdominal pain, Denies nausea and Denies vomiting Musculoskeletal: Musculoskeletal: Reports no additional musculoskeletal complaints Integumentary/Breasts: Skin/Breast: Reports system reviewed and no additional complaints, except as docu Neurologic: Reports system reviewed and no additional complaints, except as documented Psychiatric: Psychiatric: Reports no additional psychiatric complaints Allergic/Immunologic: Allergic/Immunologic: Reports no additional allergic/immunologic complaints [facility] Past Medical History Medical History Anxiety Arthritis Asthma childhood Crohn disease Cyst History of Crohn's disease Nicotine use Psoriasis Psoriatic arthritis Vaginal delivery X2 Surgical History Surgical History History of exploratory laparotomy (~1997) History of removal of cyst History of tubal ligation (~2006) History of tympanostomy Hx of spinal surgery (~2013) Family History Family History Father Diabetes mellitus Mother Hypertension Social History Social History Social History: Pt lives with 2 sons Smoking packs per day: 0.25 Smoking cigarettes per day: 5.0 Years smoked: 20 Smoking pack-years: 5.00 Smoking status: Smoker, status unknown Tobacco type: cigarettes Second hand tobacco smoke exposure: No Additional smoking assessment comments: medical marijuana usage daily Alcohol intake: current Substance use: current Substance use type: marijuana Other substance usage details: past use of heroin with patient clean for 9 years Living arrangements: with family Occupation/Education: unemployed Gender identity (if verbalized by the patient): Female Sexual Orientation (if Verbalized by the Patient): Straight or Heterosexual Spiritual care concerns: No Agree to blood products: Yes Comments At the time of my signature, I reviewed and agree with the nursing past medical, surgical, social, and family history. There is no relevant family history p
[2024-03-31 11:12] VITALS: BP 109/70; PULSE 73; RESP 20; TEMP 35.8; O2SAT 98
[2024-03-31 19:54] LABS: Trichomonas Vag PCR NOT DETECTED (NOT DETECTE)
[2024-03-31 20:16] LABS: Chlamydia trachomatis NOT DETECTED (NOT DETECTE); Neisseria gonorrhoeae PCR NOT DETECTED (NOT DETECTE)
== END 2024-03-31 12:21 | disposition home or self-care (01) ==
PROVIDERS: Emergency Provider Nurse Practitioner
DX: J40 Bronchitis, not specified as acute or chronic (principal); Z20.2 Contact with and (suspected) exposure to infections with a predominantly sexual mode of transmission; Z87.891 Personal history of nicotine dependence; F12.90 Cannabis use, unspecified, uncomplicated; M19.90 Unspecified osteoarthritis, unspecified site; K50.90 Crohn's disease, unspecified, without complications; L40.9 Psoriasis, unspecified
CPT/HCPCS: 71046; 87491; 87591; 87661; 99213; G0463

== ENCOUNTER 2024-09-10 10:25 | Emergency (ER) | payer OTHER, SELFPAY ==
[2024-09-10 10:39] VITALS: BP 117/83; PULSE 93; RESP 16; TEMP 37; O2SAT 100
--- NOTE | 2024-09-10 10:46 | ED_ITS ---
HPI - URI/Sore Throat General Chief Complaint: Upper Respiratory Infection Stated Complaint: Strep Symptoms Time Seen by Provider: 09/10/24 10:46 Source: patient and RN notes reviewed Mode of arrival: ambulatory Limitations: no limitations History of Present Illness HPI Narrative: 43-year-old female presents with concern for throat pain, sore throat, headache, body aches, runny nose, cough. Reports her son was diagnosed with strep this weekend. MD elicited complaint: cough and sore throat Related Data Home Medications ?Medication ?Instructions ?Recorded ?Confirmed ?Last Taken ?Type ustekinumab 90 mg/mL subcutaneous 90 mg subcut DIRECTED 09/15/19 09/10/24 Unknown History syringe (Stelara) Allergies Allergy/AdvReac Type Severity Reaction Status Date / Time No Known Allergies Allergy Verified 09/10/24 10:33 Review of Systems Review of Systems: CONSTITUTIONAL: Denies malaise, chills, sweats, or fever. EYES: Denies visual changes, redness, or discharge. ENT: Reports rhinorrhea, congestion, and sore throat. CARDIOVASCULAR: Denies chest pain, palpitations, or edema. RESPIRATORY: Reports cough. Denies dyspnea. GASTROINTESTINAL: Denies abdominal pain, nausea, vomiting, diarrhea SKIN: Denies rash or itching. MUSCULOSKELETAL: Reports myalgia. NEUROLOGIC: Denies headache. All systems reviewed & are unremarkable except as noted in HPI and below PMFSH Past Medical History Medical History Anxiety Arthritis Asthma childhood Crohn disease Cyst History of Crohn's disease Nicotine use Psoriasis Psoriatic arthritis Vaginal delivery X2 Surgical History Surgical History History of exploratory laparotomy (~1997) History of removal of cyst History of tubal ligation (~2006) History of tympanostomy Hx of spinal surgery (~2013) Family History Family History Father Diabetes mellitus Mother Hypertension Social History Social History Social History: Pt lives with 2 sons Smoking packs per day: 0.25 Smoking cigarettes per day: 5.0 Years smoked: 20 Smoking pack-years: 5.00 Smoking status: Smoker, status unknown Tobacco type: cigarettes Second hand tobacco smoke exposure: No Additional smoking assessment comments: medical marijuana usage daily Alcohol intake: current Substance use: current Substance use type: marijuana Other substance usage details: past use of heroin with patient clean for 9 years Living arrangements: with family Occupation/Education: unemployed Gender identity (if verbalized by the patient): Female Sexual Orientation (if Verbalized by the Patient): Straight or Heterosexual Spiritual care concerns: No Agree to blood products: Yes Comments At time of signature, agree with nursing past medical, surgical, social and family history. There is no relevant family history pertinent to the presenting complaint Exam Narrative: GENERAL: Well-appearing, well-nourished, and in no acute distress. HEAD: Normocephalic EYES: PERRLA, conjunctivae clear ENT: Nares clear. Mucous membranes moist. TM pearly mendez with dull light reflex bilaterally; no tragal tenderness. Oropharynx erythematous without lesions. Tonsils enlarged and without exudate, no drooling, no hoarseness, no trismus, uvula midline. NECK: Supple. No lymphadenopathy CHEST: Clear to auscultation, breath sounds equal. No wheezing, rhonchi, rales, or stridor. No respiratory distress, speaks in full sentences. HEART: Regular rate and rhythm. No murmur heard. SKIN: Warm, dry, no rash. NEURO: Alert and oriented x3. PSYCH: Normal mood and affect Course Course Emergency Course: Patient is aware of diagnosis, understands and agrees to treatment plan. Anticipatory guidance given. Patient agrees to follow-up as directed and is aware of reasons to seek care at the emergency department. Portions of this record may have been created with voice recognition software Level of Care: Express Care Visit Vital Signs Vital signs: Vital Signs Temperature 98.6 F 09/10/24 10:39 Pulse Rate 93 09/10/24 10:39 Respiratory Rate 16 09/10/24 10:39 Blood Pressure 117/83 09/10/24 10:39 Pulse Oximetry 100 09/10/24 10:39 Temperature 98.6 F 09/10/24 10:39 Pulse Rate 93 09/10/24 10:39 Respiratory Rate 16 09/10/24 10:39 Blood Pressure 117/83 09/10/24 10:39 Pulse Oximetry 100 02/26/25 10:39 Reviewed. MDM - URI/Sore Throat MDM Narrative Medical decision making narrative: Differential diagnosis considered: Lowry virus, strep pharyngitis, allergic rhinitis, upper respiratory tract infection, sinusitis, rhinosinusitis, nasopha ryngitis. viral pharyngitis, otitis media, otitis externa, pneumonia, bronchitis, viral cough syndrome, viral syndrome, and influenza. Exam findings show no acute concerns or changes; patient is non-toxic appearing and is in no distress. Patient is appropriate for outpatient treatment and follow-up. Lab Data Attestation: I reviewed the patient's lab results. Critical Care Time Critical Care Time Critical Care Time: No Discharge Plan Discharge Clinical Impression: Acute streptococcal pharyngitis Patient Disposition: Home, Self-Care Condition: Stable Instructions: Antibiotic Form, Strep Throat (ED) Additional Instructions: -Take the medication as prescribed. Throw away the toothbrush after 24hours of antibiotic. -Eat and drink things that are easy to swallow, like tea or soup, or popsicles to suck on. -Oral rinses such as: Salt water gargles and/or may use topical anesthetic (eg. Chloraseptic spray) or lozenges to relieve dryness or throat pain). -Take Tylenol and ibuprofen as needed for pain and fever as directed. -Frequent hand washing or hand industrial energy engineer is one of the best ways to prevent spread of infection. -Follow up with primary care provider in 2-3 days if condition is not improving; or seek ER visit if you have trouble breathing, cannot drink enough fluids, have muffled voice, difficulty opening your mouth, or severe swelling. Patient Language: Gibraltarian Prescriptions: New penicillin V potassium 500 mg tablet 500 mg PO Q12H 10 Days Qty: 20 0RF No Action Stelara 90 mg/mL syringe 90 mg SUBCUT DIRECTED (DME) Aerochamber MV Spacer See Rx Instructions .Route Qty: 1 0RF Rx Instructions: As directed Follow-up/Referrals: PHYSICIAN,SWEATBAND MAKER [Primary Care Provider] - Stand Alone Forms: Work/School Release IP Time of Disposition: 10:51
[2024-09-10 11:06] LABS: EDCOVIDSCREEN Negative (Negative); EDINFLUASCREEN Negative (Negative); EDINFLUBSCREEN Negative (Negative); EDSTREPNEGPOS1 Positive (Negative)
== END 2024-09-10 10:56 | disposition home or self-care (01) ==
PROVIDERS: Emergency Provider Nurse Practitioner
DX: J02.0 Streptococcal pharyngitis (principal); Z20.822 Contact with and (suspected) exposure to COVID-19; F12.90 Cannabis use, unspecified, uncomplicated; M19.90 Unspecified osteoarthritis, unspecified site; K50.90 Crohn's disease, unspecified, without complications; L40.9 Psoriasis, unspecified; L40.50 Arthropathic psoriasis, unspecified
CPT/HCPCS: 87426; 87804; 87880; 99213; G0463